=== PATIENT | male | born 1940 | race Caucasian/White ===

== ENCOUNTER 2017-04-12 10:25 | Emergency (ER) | payer MEDICARE, BC ==
[2011-11-14 09:53] VITALS: BMI 23.9
== END 2017-04-12 13:08 | disposition home or self-care (01) ==
LOC: D.ER 10:25
DX: S43.401A Unspecified sprain of right shoulder joint, initial encounter (principal); V43.52XA Car driver injured in collision with other type car in traffic accident, initial encounter; Y93.89 Activity, other specified; Y92.410 Unspecified street and highway as the place of occurrence of the external cause; S16.1XXA Strain of muscle, fascia and tendon at neck level, initial encounter; S29.012A Strain of muscle and tendon of back wall of thorax, initial encounter